=== PATIENT | female | born 1985 | race Caucasian/White ===

== ENCOUNTER 2016-07-04 10:41 | Emergency (ER) | payer OTHER ==
[~2016-07-04] VITALS: Ht 167.6 cm; Wt 95.0 kg
[~2016-07-04 10:41] MED LIST: ALBUTEROL SULF8.5 GM IH; AMOXICILLIN500 MG PO; AZITHROMYCIN250 MG1 PO; CLARITIN-D 121 EACH PO; FLONASE16 G1 BOTH NARES; LAMISIL AT12 G1 TP; NAPROXEN500 MG PO; NOHOMEMEDS; PREDNISONE20 MG PO; ZITHROMAX Z-PA250 MG PO; ZOFRAN4 MG PO
[2016-07-04] MEDS ORDERED: ADVIL,NUPRIN,M200 MG PO (12:56)
[2016-07-04] MEDS ORDERED: AMOXICILLIN500 M1 PO (13:43)
[2016-07-04 13:54] VITALS: BP 118/68
== END 2016-07-04 13:55 | disposition home or self-care (01) ==
LOC: EME 10:41
DX: J02.0 Streptococcal pharyngitis (principal); M79.1 Myalgia; R68.83 Chills (without fever); F17.200 Nicotine dependence, unspecified, uncomplicated
CPT/HCPCS: 87651 90; 99281; 99284; J1100; J1885

== ENCOUNTER 2016-10-14 21:32 | Emergency (ER) | payer OTHER ==
[~2016-10-14] VITALS: Ht 167.6 cm; Wt 95.7 kg
[~2016-10-14 21:32] MED LIST changes: +ADVIL,NUPRIN,M200 MG PO; +AMOXICILLIN500 M1 PO
[2016-10-14 22:19] LABS: MCHC 33.5 G/DL (30.0-36.0); MCV 89.7 FL (83-99); MEAN PLAT.VOLUME 12.4 uM^3 (9.5-12.4); PLATELET COUNT 161 K/uL (156-360); RBC DIS.WIDTH-CV 13.7 % (11.8-14.6); RBC DIS.WIDTH-SD 45.4 % (39-53); RED BLOOD COUNT 4.46 M/uL (3.80-5.20); WHITE BLOOD COUNT 9.6 K/uL (4.1-10.2)
[2016-10-14 22:27] LABS: CHLORIDE 111 mEq/L (99-109); POTASSIUM 3.7 mEq/L (3.7-5.4); SODIUM 142 mEq/L (136-147)
[2016-10-14 22:29] LABS: GLUCOSE 119 mg/dL (70-99)
[2016-10-14 22:30] LABS: ANION GAP 11 MEQ/L (2-14)
[2016-10-14 22:33] LABS: GFR ESTIMATE (CALCULATED) > 59 mL/min/
[2016-10-14 22:34] LABS: UREA NITROGEN (BUN) 8 mg/dL (9-23)
[2016-10-14 22:41] LABS: TROP-I INTERPRETATION NEGATIVE; TROPONIN-I < 0.01 ng/mL (0.0-0.30)
[2016-10-15] MEDS ORDERED: VENTOLIN HFA18 GM IH (00:59)
[2016-10-15] MEDS ORDERED: PROVENTIL,2.5 MG/3 M IH (00:59)
[2016-10-15] MEDS ORDERED: FLONASE16 G1 BOTH NARES (00:59)
[2016-10-15 01:08] VITALS: BP 125/87
== END 2016-10-15 01:08 | disposition home or self-care (01) ==
LOC: EXP 21:32 → EME 21:32 → EXP 10-15 01:08
DX: J06.9 Acute upper respiratory infection, unspecified (principal); J45.909 Unspecified asthma, uncomplicated; F17.200 Nicotine dependence, unspecified, uncomplicated
CPT/HCPCS: 71020; 80048; 84484; 85027; 93005; 94640; 99281; 99283

== ENCOUNTER 2017-09-10 10:48 | Emergency (ER) | payer OTHER ==
[~2017-09-10] VITALS: Ht 165.1 cm; Wt 77.2 kg
[~2017-09-10 10:48] MED LIST changes: +PROVENTIL,2.5 MG/3 M IH; +VENTOLIN HFA18 GM IH
[2017-09-10 11:38] LABS: HEMATOCRIT 43.7 % (36.0-46.0); HEMOGLOBIN 14.9 G/DL (11.9-15.5); MCH 31.2 PG (29.0-34.0); MCHC 34.1 G/DL (30.0-36.0); MCV 91.6 FL (83-99); RBC DIS.WIDTH-CV 12.7 % (11.8-14.6); RBC DIS.WIDTH-SD 42.9 % (39-53); RED BLOOD COUNT 4.77 M/uL (3.80-5.20); WHITE BLOOD COUNT 5.7 K/uL (4.1-10.2)
[2017-09-10 11:46] LABS: APPEARANCE SL.HAZY ((CLEAR)); BILIRUBIN NEGATIVE; BLOOD LARGE; COLOR YELLOW ((YELLOW)); GLUCOSE (STRIP) NEGATIVE; KETONES NEGATIVE; LEUKOCYTES NEGATIVE; NITRITE NEGATIVE; PROTEIN (STRIP) 30; SPECIFIC GRAVITY 1.024 (1.000-1.030); UROBILINOGEN 0.2 MG/DL (0.2-1.0)
[2017-09-10 11:54] LABS: ALBUMIN 4.4 g/dL (3.2-4.8)
[2017-09-10 11:55] LABS: CHLORIDE 107 mEq/L (99-109); SODIUM 141 mEq/L (136-147)
[2017-09-10 11:57] LABS: GLUCOSE 127 mg/dL (70-99); TOTAL PROTEIN 7.3 g/dL (6.4-8.3)
[2017-09-10 11:59] LABS: TOTAL BILIRUBIN 0.7 mg/dL (0.0-1.0)
[2017-09-10 12:00] LABS: ALKALINE PHOSPHATASE 67 IU/L (3-129)
[2017-09-10 12:01] LABS: GFR ESTIMATE (CALCULATED) > 59 mL/min/
[2017-09-10 12:02] LABS: AST (GOT) 13 IU/L (2-34); UREA NITROGEN (BUN) 12 mg/dL (9-23)
[2017-09-10 12:04] LABS: ALT (GPT) 9 IU/L (3-49)
[2017-09-10 12:06] LABS: EPITHELIAL CELLS 1+ /HPF; RED BLOOD CELLS 20-30 /HPF (0-5); WHITE BLOOD CELLS NONE SEEN /HPF (0-5)
[2017-09-10 12:07] LABS: BACTERIA 1+ /HPF; MUCUS 3+ /LPF; UCUL ADDED? NO
[2017-09-10 12:12] LABS: QUANTITATIVE HCG < 4.0 MIU/ML
[2017-09-10 12:20] LABS: PLAT.SUFFICIENCY ADEQUATE; PLATELET COUNT 181 K/uL (156-360)
[2017-09-10 14:26] LABS: SOURCE SWAB
[2017-09-10] MEDS ORDERED: KEFLEX500 MG PO (15:22)
[2017-09-10] MEDS ORDERED: PYRIDIUM200 MG PO (15:22)
[2017-09-10 15:36] VITALS: BP 112/55
== END 2017-09-10 15:38 | disposition home or self-care (01) ==
LOC: EME 10:48
PROVIDERS: Physician Assistant Medical
DX: N30.90 Cystitis, unspecified without hematuria (principal); J45.909 Unspecified asthma, uncomplicated; F17.200 Nicotine dependence, unspecified, uncomplicated
CPT/HCPCS: 76856; 80053; 81003; 84702; 85027; 87086; 87210; 87491; 87591; 99281; 99284; J1885

== ENCOUNTER 2017-09-19 10:43 | Emergency (ER) | payer OTHER ==
[~2017-09-19] VITALS: Ht 165.1 cm; Wt 78.9 kg
[~2017-09-19 10:43] MED LIST changes: +KEFLEX500 MG PO; +PYRIDIUM200 MG PO
[2017-09-19 11:40] LABS: HEMATOCRIT 39.6 % (36.0-46.0); HEMOGLOBIN 13.5 G/DL (11.9-15.5); MCH 31.5 PG (29.0-34.0); MCHC 34.1 G/DL (30.0-36.0); MCV 92.3 FL (83-99); RBC DIS.WIDTH-CV 12.9 % (11.8-14.6); RBC DIS.WIDTH-SD 43.3 % (39-53); RED BLOOD COUNT 4.29 M/uL (3.80-5.20); WHITE BLOOD COUNT 8.2 K/uL (4.1-10.2)
[2017-09-19 11:48] LABS: CHLORIDE 110 mEq/L (99-109); POTASSIUM 3.8 mEq/L (3.7-5.4); SODIUM 143 mEq/L (136-147)
[2017-09-19 11:50] LABS: GLUCOSE 95 mg/dL (70-99)
[2017-09-19 11:51] LABS: TOTAL PROTEIN 6.7 g/dL (6.4-8.3)
[2017-09-19 11:52] LABS: TOTAL BILIRUBIN 0.5 mg/dL (0.0-1.0)
[2017-09-19 11:54] LABS: ALKALINE PHOSPHATASE 61 IU/L (3-129); CREATININE 0.8 mg/dL (0.6-1.3); GFR ESTIMATE (CALCULATED) > 59 mL/min/
[2017-09-19 11:55] LABS: UREA NITROGEN (BUN) 11 mg/dL (9-23)
[2017-09-19 11:56] LABS: AST (GOT) 11 IU/L (2-34)
[2017-09-19 11:57] LABS: ALT (GPT) 9 IU/L (3-49)
[2017-09-19 12:03] LABS: QUANTITATIVE HCG < 4.0 MIU/ML
[2017-09-19 12:17] LABS: APPEARANCE SL.HAZY ((CLEAR)); BILIRUBIN NEGATIVE; BLOOD MODERATE; COLOR YELLOW ((YELLOW)); GLUCOSE (STRIP) NEGATIVE; KETONES NEGATIVE; LEUKOCYTES TRACE; NITRITE NEGATIVE; PROTEIN (STRIP) NEGATIVE; SPECIFIC GRAVITY 1.019 (1.000-1.030); UROBILINOGEN 0.2 MG/DL (0.2-1.0)
[2017-09-19 12:25] LABS: BACTERIA RARE /HPF; EPITHELIAL CELLS 1+ /HPF; MUCUS 3+ /LPF; UCUL ADDED? NO; WHITE BLOOD CELLS 0-5 /HPF (0-5)
[2017-09-19 13:14] LABS: PLAT.SUFFICIENCY ADEQUATE; PLATELET COUNT 163 K/uL (156-360)
[2017-09-19] MEDS ORDERED: BACTRIM,SEPT1 TABLET PO (15:18)
[2017-09-19 15:43] VITALS: BP 103/71
== END 2017-09-19 15:48 | disposition home or self-care (01) ==
LOC: EME 10:43
DX: N39.0 Urinary tract infection, site not specified (principal); J45.909 Unspecified asthma, uncomplicated; F17.200 Nicotine dependence, unspecified, uncomplicated
CPT/HCPCS: 74177; 80053; 81003; 84702; 85027; 99281; 99284; J1885

== ENCOUNTER 2017-10-31 15:56 | Emergency (ER) | payer OTHER ==
[~2017-10-31] VITALS: Ht 165.1 cm; Wt 78.4 kg
[~2017-10-31 15:56] MED LIST changes: +BACTRIM,SEPT1 TABLET PO
[2017-10-31 16:41] LABS: SOURCE URINE
[2017-10-31 16:45] LABS: APPEARANCE CLEAR ((CLEAR)); BILIRUBIN NEGATIVE; BLOOD NEGATIVE; COLOR YELLOW ((YELLOW)); GLUCOSE (STRIP) NEGATIVE; KETONES NEGATIVE; LEUKOCYTES NEGATIVE; NITRITE NEGATIVE; PROTEIN (STRIP) NEGATIVE; SPECIFIC GRAVITY 1.015 (1.000-1.030); UCUL ADDED? NO; UROBILINOGEN 0.2 MG/DL (0.2-1.0)
[2017-10-31 17:00] LABS: HEMATOCRIT 39.5 % (36.0-46.0); HEMOGLOBIN 13.8 G/DL (11.9-15.5); MCH 31.3 PG (29.0-34.0); MCHC 34.9 G/DL (30.0-36.0); MCV 89.6 FL (83-99); RBC DIS.WIDTH-CV 12.9 % (11.8-14.6); RBC DIS.WIDTH-SD 42.4 % (39-53); RED BLOOD COUNT 4.41 M/uL (3.80-5.20); WHITE BLOOD COUNT 9.1 K/uL (4.1-10.2)
[2017-10-31 17:10] LABS: CHLORIDE 110 mEq/L (99-109); POTASSIUM 4.1 mEq/L (3.7-5.4); SODIUM 140 mEq/L (136-147)
[2017-10-31 17:11] LABS: GLUCOSE 106 mg/dL (70-99)
[2017-10-31 17:15] LABS: CREATININE 0.7 mg/dL (0.6-1.3); GFR ESTIMATE (CALCULATED) > 59 mL/min/
[2017-10-31 17:16] LABS: UREA NITROGEN (BUN) 7 mg/dL (9-23)
[2017-10-31 17:25] LABS: QUANTITATIVE HCG 583.4 MIU/ML
[2017-10-31 17:46] LABS: HEMATOLOGY COMMENT 1 SN; PLAT.SUFFICIENCY DECREASED; PLATELET COUNT 146 K/uL (156-360)
[2017-10-31] MEDS ORDERED: PRENATAL TABLE1 EAC3 PO (18:58)
[2017-10-31 19:08] VITALS: BP 143/98
[2017-11-02 13:39] LABS: CHLAMYDIA TRACHOMATIS NEGATIVE; NEISSERIA GONORRHOEAE NEGATIVE
== END 2017-10-31 19:09 | disposition home or self-care (01) ==
LOC: EME 15:56
PROVIDERS: Nurse Practitioner Family
DX: O26.899 Other specified pregnancy related conditions, unspecified trimester (principal); R10.2 Pelvic and perineal pain; O99.519 Diseases of the respiratory system complicating pregnancy, unspecified trimester; J45.909 Unspecified asthma, uncomplicated; O99.330 Smoking (tobacco) complicating pregnancy, unspecified trimester; F17.200 Nicotine dependence, unspecified, uncomplicated; Z3A.00 Weeks of gestation of pregnancy not specified
CPT/HCPCS: 76801; 80048; 81003; 84702; 85027; 87491; 87591; 99281; 99284

== ENCOUNTER 2018-01-15 14:54 | Emergency (ER) | payer OTHER ==
[~2018-01-15] VITALS: Ht 165.1 cm; Wt 95.4 kg
[~2018-01-15 14:54] MED LIST changes: +PRENATAL TABLE1 EAC3 PO
[2018-01-15 15:32] LABS: BASOPHIL (%) 0.5 % (0-1); BASOPHIL COUNT 0.1 K/uL (0-0.1); EOSINOPHIL (%) 2.9 % (0-5); EOSINOPHIL COUNT 0.3 K/uL (0-0.3); HEMATOCRIT 33.4 % (36.0-46.0); HEMOGLOBIN 11.7 G/DL (11.9-15.5); IMMATURE GRANULOCYTE (%) 1.7 % (0.0-0.7); LYMPHOCYTE (%) 24.7 % (15-42); LYMPHOCYTE COUNT 2.7 K/uL (1.0-2.8); MCH 31.1 PG (29.0-34.0); MCV 88.8 FL (83-99); MONOCYTE (%) 5.8 % (3-12); MONOCYTE COUNT 0.6 K/uL (0-0.8); NEUTROPHIL (%) 64.4 % (45-76); PLATELET COUNT 164 K/uL (156-360); RBC DIS.WIDTH-CV 13.2 % (11.8-14.6); RBC DIS.WIDTH-SD 43.2 % (39-53); RED BLOOD COUNT 3.76 M/uL (3.80-5.20); WHITE BLOOD COUNT 10.9 K/uL (4.1-10.2)
[2018-01-15 15:43] LABS: ALBUMIN 3.4 g/dL (3.2-4.8); CHLORIDE 105 mEq/L (99-109); POTASSIUM 3.8 mEq/L (3.7-5.4); SODIUM 135 mEq/L (136-147)
[2018-01-15 15:45] LABS: GLUCOSE 105 mg/dL (70-99)
[2018-01-15 15:46] LABS: TOTAL PROTEIN 6.2 g/dL (6.4-8.3)
[2018-01-15 15:47] LABS: TOTAL BILIRUBIN 0.2 mg/dL (0.0-1.0)
[2018-01-15 15:49] LABS: ALKALINE PHOSPHATASE 40 IU/L (3-129); CREATININE 0.5 mg/dL (0.6-1.3); GFR ESTIMATE (CALCULATED) > 59 mL/min/
[2018-01-15 15:50] LABS: UREA NITROGEN (BUN) 7 mg/dL (9-23)
[2018-01-15 15:51] LABS: AST (GOT) 15 IU/L (2-34); DIRECT BILIRUBIN 0.1 mg/dL (0.0-0.3)
[2018-01-15 15:52] LABS: ALT (GPT) 12 IU/L (3-49); LIPASE 7 U/L (1.0-51.0)
[2018-01-15 16:13] LABS: APPEARANCE SL.HAZY ((CLEAR)); BILIRUBIN NEGATIVE; BLOOD NEGATIVE; COLOR YELLOW ((YELLOW)); GLUCOSE (STRIP) NEGATIVE; KETONES NEGATIVE; LEUKOCYTES LARGE; NITRITE NEGATIVE; PROTEIN (STRIP) NEGATIVE; SPECIFIC GRAVITY 1.016 (1.000-1.030); UROBILINOGEN 0.2 MG/DL (0.2-1.0)
[2018-01-15 16:17] LABS: QUANTITATIVE HCG 40746.3 MIU/ML
[2018-01-15 17:02] LABS: RED BLOOD CELLS 0-5 /HPF (0-5); WHITE BLOOD CELLS 0-5 /HPF (0-5)
[2018-01-15 17:03] LABS: BACTERIA 1+ /HPF; EPITHELIAL CELLS 1+ /HPF; MUCUS NONE SEEN /LPF; UCUL ADDED? NO
[2018-01-15] MEDS ORDERED: MACROBID100 MG PO (17:39)
[2018-01-15 18:09] VITALS: BP 113/73
== END 2018-01-15 18:18 | disposition home or self-care (01) ==
LOC: EME 14:54
PROVIDERS: Emergency Medicine
DX: O23.42 Unspecified infection of urinary tract in pregnancy, second trimester (principal); O99.512 Diseases of the respiratory system complicating pregnancy, second trimester; J45.909 Unspecified asthma, uncomplicated; Z3A.15 15 weeks gestation of pregnancy; Z87.891 Personal history of nicotine dependence
CPT/HCPCS: 76815; 80048; 80076; 81003; 83690; 84702; 85025; 99281; 99285